=== PATIENT | female | born 1965 | race American Indian/Alaskan Native ===

== ENCOUNTER 2019-03-21 20:29 | Emergency (ER) | payer SELFPAY ==
[2019-03-21] MEDS ORDERED: SODIUM CHLORIDE 0.9% 1000 ML 1,000 ML IV ONE (21:12)
[2019-03-21] MEDS ORDERED: ONDANSETRON 4 MG/2 ML INJ IV ONE (21:12)
[2019-03-21] MEDS ORDERED: DICYCLOMINE 20 MG/2 ML INJ IM ONE (21:12)
[2019-03-21] MEDS ORDERED: KETOROLAC 30 MG/1 ML INJ IV ONE (21:12)
[2019-03-21 21:29] LABS: Basophils % (Auto) 0.7 % (0.0-1.8); Eosinophils # (Auto) 0.1 K/mm3 (0.0-0.4); Eosinophils % (Auto) 1.2 % (0.0-4.3); Hematocrit 42.5 % (30.3-42.9); Lymphocytes # (Auto) 2.1 K/mm3 (1.2-5.4); Lymphocytes % (Auto) 29.4 % (13.4-35.0); Mean Corpuscular HGB Conc 33 % (30-34); Mean Corpuscular Volume 90 fl (79-97); Monocytes # (Auto) 0.5 K/mm3 (0.0-0.8); Platelet Count 241 K/mm3 (140-440); Red Blood Count 4.72 M/mm3 (3.65-5.03); Red Cell Distribution Width 16.8 % (13.2-15.2)
--- NOTE | 2019-03-21 21:45 | XRay Report ---
ABDOMEN SUPINE INDICATION / CLINICAL INFORMATION: constipation abd pain. COMPARISON: None available. FINDINGS: Nonspecific bowel gas pattern, with very mildly dilated small bowel loops in the midabdomen. Appearan ce is most suggestive of mild ileus. Signer Name: Mando De La Fuente MD Signed: 03/21/2019 9:40 PM Workstation Name: [id number]
[2019-03-21 21:51] LABS: Alanine Aminotransferase 21 units/L (7-56); Albumin 4.5 g/dL (3.9-5); BUN/Creatinine Ratio 14; Blood Urea Nitrogen 13 mg/dL (7-17); Calcium 9.8 mg/dL (8.4-10.2); Hemolysis Index 7
[2019-03-21 23:01] VITALS: BP 129/88
--- NOTE | 2019-03-21 23:11 | Emergency Department Report ---
ED Abdominal Pain HPI - General Chief Complaint: Abdominal Pain Stated Complaint: ABDOMINAL PAIN Time Seen by Provider: 03/21/19 21:11 Source: patient, EMS Mode of arrival: Stretcher Limitations: No Limitations - History of Present Illness Initial Comments: Patient is a 54-year-old -[place] female with history of abdominal wall tear and and repair 5 years ago there is a history of frequent bouts of constipation patient presents for left upper quadrant pain and hard stools patient states she tolerated the entire dinner meal tonight with no n/v but increased abd cramping. MD Complaint: abdominal pain Onset/Timin -: week(s), unknown (chronic problem ) Location: LUQ Radiation: LUQ Migration to: LUQ Severity: moderate Severity scale (0 -10): 7 Quality: cramping, aching Consistency: constant Improves With: nothing Worsens With: eating Associated Symptoms: nausea, constipation. denies: diarrhea, fever, dysuria, melena, hematuria, syncope - Related Data LMP (females 10-50): other (post menopausal) Allergies Allergy/AdvReac Type Severity Reaction Status Date / Time No Known Allergies Allergy Unverified 03/21/19 21:06 ED Review of Systems ROS: Stated complaint: ABDOMINAL PAIN Other details as noted in HPI Constitutional: denies: chills, fever Eyes: denies: eye pain, eye discharge, vision change ENT: denies: ear pain, throat pain Respiratory: denies: cough, shortness of breath, wheezing Cardiovascular: denies: chest pain, palpitations Endocrine: no symptoms reported Gastrointestinal: abdominal pain, nausea, constipation. denies: vomiting, melena, hematochezia Genitourinary: denies: urgency, dysuria, discharge Musculoskeletal: back pain. denies: joint swelling, arthralgia Skin: denies: rash, lesions Neurological: denies: headache, weakness, paresthesias Psychiatric: denies: anxiety, depression Hematological/Lymphatic: denies: easy bleeding, easy bruising ED Past Medical Hx - Past Medical History Previous Medical History?: Yes Additional medical history: Ruptured stomach - Surgical History Past Surgical History?: Yes - Social History Smoking Status: Current Every Day Smoker ED Physical Exam - General Limitations: No Limitations General appearance: alert, in no apparent distress - Head Head exam: Present: atraumatic, normocephalic - Eye Eye exam: Present: normal appearance, PERRL, EOMI Pupils: Present: normal accommodation - ENT ENT exam: Present: mucous membranes moist - Neck Neck exam: Present: normal inspection, full ROM. Absent: tenderness, lymphadenopathy - Respiratory Respiratory exam: Present: normal lung sounds bilaterally. Absent: respiratory distress, wheezes, stridor, chest wall tenderness - Cardiovascular Cardiovascular Exam: Present: regular rate, normal rhythm, normal heart sounds. Absent: systolic murmur, diastolic murmur, rubs, gallop - GI/Abdominal GI/Abdominal exam: Present: distended, tenderness (luq ), normal bowel sounds. Absent: guarding, rebound, rigid, bruit, hernia - Rectal Rectal exam: Present: deferred - Extremities Exam Extremities exam: Present: normal inspection, full ROM, normal capillary refill. Absent: tenderness, pedal edema, calf tenderness - Back Exam Back exam: Present: normal inspection, full ROM. Absent: tenderness, CVA tenderness (R), CVA tenderness (L), muscle spasm, paraspinal tenderness, rash noted - Neurological Exam Neurological exam: Present: alert, oriented X3, CN II-XII intact, normal gait, reflexes normal - Psychiatric Psychiatric exam: Present: normal affect, normal mood - Skin Skin exam: Present: warm, dry, intact, normal color. Absent: rash ED Course Vital Signs 03/21/19 03/21/19 03/21/19 20:58 21:02 21:06 Pulse Rate 69 73 Respiratory 16 22 Rate Blood Pressure 123/73 133/85 133/85 O2 Sat by Pulse 99 Oximetry 03/21/19 03/21/19 03/21/19 21:16 21:30 21:46 Pulse Rate 74 71 78 Respiratory 13 13 17 Rate Blood Pressure 133/85 128/92 123/73 O2 Sat by Pulse Oximetry 03/21/19 03/21/19 03/21/19 22:00 22:16 22:30 Pulse Rate 73 76 105 H Respiratory 20 21 14 Rate Blood Pressure 120/78 120/78 120/78 O2 Sat by Pulse Oximetry 03/21/19 22:54 Pulse Rate 82 Respiratory 21 Rate Blood Pressure 129/88 O2 Sat by Pulse Oximetry ED Medical Decision Making - Lab Data Result diagrams: 03/21/19 21:17 03/21/19 21:17 - Radiology Data Radiology results: report reviewed, image reviewed kub: ? ileus, CT: pt declines - Medical Decision Making KUB: Possible ileus patient now refuses CT scan of abdomen and pelvis states she's just constipated will take [id number] constipation medications patient advises that she is signing out AMA and will follow up with GI patient is currently alert oriented 3 demonstrates sound decision-making capacity patient denies abdominal pain at this time patient has had opportunity to ask and I have answered all questions to patient's satisfaction including risk of signing out AMA and worsening symptoms including patient verbalizes understanding of same signed out AMA at this time patient will follow up with GI Critical care attestation.: If time is entered above; I have spent that time in minutes in the direct care of this critically ill patient, excluding procedure time. ED Disposition Clinical Impression: Abdominal pain Qualifiers: Abdominal location: left upper quadrant Qualified Code(s): R10.12 - Left upper quadrant pain Disposition: DC-07 LEFT AGAINST MED ADVICE Is pt being admited?: No Does the pt Need Aspirin: No Condition: Undetermined Instructions: Abdominal Pain (ED) Referrals: [facility] [Provider Group] - 3-5 Days Forms: AMA Form
== END 2019-03-22 00:11 | disposition left against medical advice (07) ==
LOC: ED 20:29
DX: R10.12 Left upper quadrant pain (principal); R11.0 Nausea; K59.00 Constipation, unspecified
CPT/HCPCS: 36415; 74018; 80053; 85025; 99284; J0500; J1885; J2405; J7030